=== PATIENT | female | born 2000 | race African-American/Black ===

== ENCOUNTER 2024-09-19 15:45 | Emergency (ER) | payer MEDICAID ==
[~2024-09-19] VITALS: Ht 165.1 cm; Wt 54.0 kg
[2024-09-19 15:48] VITALS: BP 104/51; PULSE 62; RESP 16; TEMP 37.1; O2SAT 100
== END 2024-09-19 16:00 | disposition left against medical advice (07) ==
LOC: ER 15:45
DX: R42 Dizziness and giddiness (principal); Z53.21 Procedure and treatment not carried out due to patient leaving prior to being seen by health care provider